=== PATIENT | female | born 2005 | race Two or more races ===

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

== ENCOUNTER 2025-02-13 19:12 | Inpatient (IN) | payer OTHER ==
[~2025-02-13] VITALS: Ht 170.2 cm; Wt 59.0 kg
--- NOTE | 2025-02-13 19:54 | NUR ---
PTE ALERTA Y ORIENTADA X 3 ESFERAS QUIEN REFIERE SANGRADO VAGINAL DESDE EL SCOTT [place] DE REALIZARSE SONOGRAMA POR EMBARAZO EN DONDE LE INDICARON QUE TENIA UN ABORTO.AL REPETIR HCG HOY REFIERE ESTAR EN AUMENTO CON DOLOR EN AREA PELVICA.
[2025-02-13] MEDS ORDERED: ADDERALL 10 MG10 MG (19:56)
[2025-02-13] MEDS ORDERED: 0.9 % SODIUM CHLORIDE 1,000 ML IV STA (22:37)
--- NOTE | 2025-02-13 23:34 | NUR ---
SE NOTIFICA ESTUDIO PENDIENTE A SONOGRAFISTA LYMARIE. FERNANDO ESPOSITO ORIENTA PTE SOBRE TX, REFIERE ENTENDER Y ACEPTAR. LE KEYUR MUESTRAS DE LABORATORIO, LE CANALIZA Y ADMINISTRA IV FLUIDS.
[2025-02-14] LABS: BASO % 0.3 % (0.1-1.2); EOS # 0.12 (0.04-0.54); EOS % 1.2 % (0.7-7.0); LYMPH # 1.68 (1.18-3.74); LYMPH % 16.9 % (19.3-53.1); MEAN PLATELET VOLUME 11.00 fl (9.4-12.4); MONO # 0.69 (0.24-0.82); MONO % 6.9 % (4.7-12.5); NEUT # 7.38 (1.56-6.13); NEUT % 74.4 % (34.0-71.1); RED CELL DISTRIBUTION WIDTH 13.0 % (11.6-14.4)
[2025-02-14 00:28] LABS: INR 1.05
[2025-02-14 00:33] LABS: ALT/SGPT 14.0 U/L (12-78); AST/SGOT 11.0 U/L (15-37); BILIRUBIN TOTAL 0.77 mg/dL (0.3-1.2); BUN CREA RATIO 20.0 (7.0-25.0); GFR 143.93; GLOBULINA 2.6 G/DL (2.4-3.5); GLUCOSE FASTING 118.0 mg/dL (65-100); HCG QUANTITATIVE 889.0 mUI/mL (1-3); OSMOLALITY SERUM 282.0 MOSM/KG (275-295)
[2025-02-14 00:34] LABS: CREATININE SERUM 0.54 mg/dL (0.55-1.02)
[2025-02-14] MEDS ORDERED: RINGERS SOLUTION,LACTATED 2,000 ML IV ONE (02:45)
--- NOTE | 2025-02-14 05:26 | NUR ---
SE ORIENTA PTE Y FAMILIAR SOBRE PROCESO DE ADMISION Y SOBRE PROCESO DE TRASFUSION, SE OBTIENE CONSENTIMIENTO FIRMADO POR FAMILIAR (MADSCOTTY), SE CONSIGUE HALIMA ACCESO VENOSO, SE REQUISAN PRBC'S. DR. POLK ORDENA TAMBIEN TRASFUNDIR PRBC UNIVERSAL DE EMERGENCIA, SE REALIZA REQUISION Y SE COMIENZA TRASFUSION. SE PREPARA PTE PARA ENTRAR A MAYLIN DE OPERACIONES. SE HAY COMODIDAD.
[2025-02-14] MEDS ORDERED: MORPHINE SULFATE 4 MG/ML VIAL IV ONE ×2 (09:45→11:00)
[2025-02-14] MEDS ORDERED: SUGAMMADEX SODIUM 200 MG/2 ML VIAL IV ONE (10:00)
[2025-02-14 14:18] VITALS: BP 95/60
[2025-02-14] MEDS ORDERED: MORPHINE SULFATE 4 MG/ML CARTRIDGE IV PRN (14:45)
[2025-02-14 20:13] VITALS: O2SAT 100
[2025-02-14] MEDS ORDERED: OxyCODONE HCL 5 MG TABLET (ROXICODONE) PO SCH (21:00)
[2025-02-15] VITALS: BP 93/60
[2025-02-15 08:35] LABS: BASO % 0.3 % (0.1-1.2); EOS # 0.06 (0.04-0.54); EOS % 0.8 % (0.7-7.0); LYMPH # 1.11 (1.18-3.74); LYMPH % 15.1 % (19.3-53.1); MEAN PLATELET VOLUME 11.80 fl (9.4-12.4); MONO # 0.66 (0.24-0.82); MONO % 9.0 % (4.7-12.5); NEUT # 5.46 (1.56-6.13); NEUT % 74.5 % (34.0-71.1); RED CELL DISTRIBUTION WIDTH 13.3 % (11.6-14.4)
[2025-02-15 09:36] VITALS: BP 98/60
[2025-02-15 16:14] VITALS: BP 95/61
[2025-02-15 20:00] VITALS: BP 101/61
[2025-02-16] VITALS: BP 90/60
[2025-02-16 08:00] VITALS: BP 93/57
== END 2025-02-16 09:48 | disposition home or self-care (01) | DRG 819 ==
LOC: ER 19:12 → OB/GYN 02-14 02:58 → SEC-K 02-14 02:58 → OB/GYN 02-14 12:32
PROVIDERS: ADMIT Obstetrics & Gynecology; ATTEND Obstetrics & Gynecology
PROC: BU4CZZZ Ultrasonography of Uterus and Ovaries (ICD-10-PCS; 2025-02-13)
PROC: 10D20ZZ Extraction of Products of Conception, Ectopic, Open Approach (ICD-10-PCS; 2025-02-14)
PROC: 0UT60ZZ Resection of Left Fallopian Tube, Open Approach (ICD-10-PCS; principal; 2025-02-14 08:15)
DX: O00.102 Left tubal pregnancy without intrauterine pregnancy (principal); D64.9 Anemia, unspecified